=== PATIENT | female | born 1965 | race African-American/Black ===

== ENCOUNTER 2018-05-31 01:29 | Emergency (ER) | payer MEDICAID, MEDICARE ==
[~2018-05-31] VITALS: Ht 167.6 cm; Wt 110.2 kg
--- NOTE | 2018-05-31 01:30 | NUR ---
[id number] FOR "BIZARRE BEHAVIOR". PATIENT REFUSES TO ANSWER ANY QUESTIONS. PT AMBULATED TO BED AND IS SITTING ON EDGE OF BED. PT REFUSED TO SPEAK AND ANSWER QUESTIONS WITH ME. PT REFUSING TO ALLOW VS TO BE TAKEN. AWAITING MD LORENZO. SITTER AT BEDSIDE.
--- NOTE | 2018-05-31 01:53 | NUR ---
Pt accepted to [facility] ER by Dr Summers. [facility] [place]#[id number]
[2018-05-31] MEDS ORDERED: OLANZAPINE 10 MG VIAL IM ONE ×2 (01:58→02:00)
[2018-05-31 03:17] LABS: BASOPHILS % (AUTO) 0.4 % (0.0-2.0); EOSINOPHILS % (AUTO) 1.6 % (0.0-6.0); HEMATOCRIT 34 % (33-45); HEMOGLOBIN 11.3 g/dL (11.5-14.8); LYMPHOCYTES # (AUTO) 2.1 /CMM (0.8-4.8); LYMPHOCYTES % (AUTO) 25.9 % (20.0-44.0); MEAN CORPUSCULAR HGB CONC 33 g/dl (31.0-36.0); MEAN CORPUSCULAR VOLUME 93 fL (82-100); MONOCYTES # (AUTO) 0.6 /CMM (0.1-1.30); MONOCYTES % (AUTO) 7.4 % (2.0-12.0); NEUTROPHILS # (AUTO) 5.2 /CMM (1.8-8.9); NEUTROPHILS % (AUTO) 64.7 % (43.0-81.0); PLATELET COUNT (AUTO) 305 /CMM (150-450)
[2018-05-31 03:25] LABS: CALCIUM, SERUM 9.4 mg/dL (8.5-10.1); CARBON DIOXIDE 26 mmol/L (21-32); CHLORIDE 104 mmol/L (98-107); CREATININE 0.8 mg/dL (0.6-1.3); GLUCOSE 133 mg/dL (74-106); POTASSIUM 4.1 mmol/L (3.5-5.1); SODIUM SERUM 139 mmol/L (136-145); UREA NITROGEN, BLOOD 14 mg/dL (7-18)
[2018-05-31 03:33] LABS: ALANINE AMINOTRANSFERASE 43 U/L (12-78); ALBUMIN 3.4 g/dL (3.4-5.0); ALCOHOL, BLOOD < 3 mg/dL (0-0); ALKALINE PHOSPHATASE 70 U/L (46-116); ASPARTATE AMINOTRANSFERASE 30 U/L (15-37); BILIRUBIN,DIRECT 0.1 mg/dL (0.0-0.2); BILIRUBIN,TOTAL 0.3 mg/dL (0.2-1.0); TOTAL PROTEIN, SERUM 7.6 g/dL (6.4-8.2)
[2018-05-31 03:35] LABS: ACETAMINOPHEN 0 ug/ml (10-30); SALICYLATE 0.8 mg/dL (2.8-20.0)
[2018-05-31 07:47] LABS: APPEARANCE,URINE SL CLOUDY (CLEAR); BILIRUBIN,URINE NEGATIVE (NEGATIVE); BLOOD, URINE NEGATIVE Ery/uL (NEGATIVE); COLOR,URINE YELLOW (YELLOW); KETONES,URINE NEGATIVE (NEGATIVE); LEUKOCYTE ESTERASE ,URINE 1+ (NEGATIVE); NITRITE, URINE POSITIVE (NEGATIVE); PH,URINE 6.5 (5.0-8.0); PROTEIN,URINE NEGATIVE (NEGATIVE); UGLUCOSE NEGATIVE (NEGATIVE); UROBILINOGEN,URINE 0.2 EU/dL (0.2)
[2018-05-31 07:54] LABS: BACTERIA,URINE 3+ /HPF (None Seen); RBC,URINE 0-2 /HPF (0-2)
--- NOTE | 2018-05-31 11:07 | NUR ---
ACCEPTED PT AT SHIFT START. PT IS SLEEPING COMFORTABLY. VSS, NO COMPLAINTS AT THIS TIME. WILL CONT TO MONITOR.
--- NOTE | 2018-05-31 13:00 | NUR ---
PT ASLEEP AND VSS. EASILY AROUSED. NO COMPLAINTS AT THIS TIME.
--- NOTE | 2018-05-31 15:17 | NUR ---
Patient is resting comfortably in bed with eyes closed. Easily aroused. VSS
--- NOTE | 2018-05-31 15:48 | NUR ---
[facility] CALLED FOR TRANSPORT, ETA:6
--- NOTE | 2018-05-31 17:20 | NUR ---
REPORT GIVEN TO SHANIQUA NEVAREZ AUSTIN PER MALVIN HALE
[2018-05-31 17:21] VITALS: BP 117/74
--- NOTE | 2018-05-31 18:14 | NUR ---
REPORT GIVEN TO KENNETH MA FROM [facility] FOR TRANSPORT TO [place].
== END 2018-05-31 18:10 ==
LOC: ER 01:34
DX: R46.1 Bizarre personal appearance (principal); E11.9 Type 2 diabetes mellitus without complications; E66.01 Morbid (severe) obesity due to excess calories; R45.1 Restlessness and agitation; Z59.0 Homelessness; Z98.51 Tubal ligation status; Z73.6 Limitation of activities due to disability
CPT/HCPCS: 36415; 80048; 80076; 80305; 80329; 81001; 85025; 87077; 87086; 87186; 96372; 99285; A4606; G0480 ×2; J3490; Z7610; 81000-TC